=== PATIENT | female | born 1995 | race Caucasian/White ===

== ENCOUNTER 2023-11-05 05:39 | Day surgery (SDC) | payer OTHER ==
[2023-10-28 16:01] LABS: BASOPHILS # (AUTO) 0.1 X10'3 (0-0.2); BASOPHILS % (AUTO) 0.7 % (0-1); EOSINOPHILS # (AUTO) 0.3 X10'3 (0-0.9); EOSINOPHILS % (AUTO) 4.1 % (0-6); LYMPHOCYTES # (AUTO) 2.4 X10'3 (1.1-4.8); LYMPHOCYTES % (AUTO) 29.8 % (21-51); MEAN CORPUSCULAR HEMOGLOBIN 26.2 PG (27.0-31.0); MEAN CORPUSCULAR HGB CONC 32.8 g/dL (33.0-36.5); MEAN CORPUSCULAR VOLUME 79.9 FL (78-98); MEAN PLATELET VOLUME 6.9 FL (7.4-10.4); MONOCYTES # (AUTO) 0.5 X10'3 (0-0.9); NEUTROPHILS # (AUTO) 4.8 X10'3 (1.8-7.7); NEUTROPHILS % (AUTO) 59.4 % (42-75); PRE OP HEMATOCRIT 40.3 % (35.0-45.0); PRE OP HEMOGLOBIN 13.2 g/dL (12.0-16.0); PRE OP PLATELET COUNT 393 X10'3 (140-440); PRE OP WHITE BLOOD COUNT 8.1 10'3 (4.8-10.8); RED BLOOD COUNT 5.05 X10'6 (4.20-5.60); RED CELL DISTRIBUTION WIDTH 14.3 % (11.5-14.5)
[2023-10-28 16:10] LABS: HCG SERUM QL NEGATIVE
[2023-10-28 16:16] LABS: BILIRUBIN,URINE NEGATIVE (Neg); CLARITY,URINE SLIGHTLY CLOUDY (Clear); COLOR,URINE YELLOW (Yellow); GLUCOSE, URINE NEGATIVE (Neg); KETONES,URINE NEGATIVE (Neg); LEUKOCYTE ESTERASE ,URINE NEGATIVE (Neg); NITRITES, URINE NEGATIVE (Neg); OCCULT BLOOD,URINE NEGATIVE (Neg); PROTEIN,URINE NEGATIVE (Neg); UROBILINOGEN,URINE 0.2 E.U/dL (0.2-1.0)
[2023-10-28 16:22] LABS: UA COLLECTION TYPE CLN CATCH MIDSTREAM
[2023-10-28 16:23] LABS: SQUAMOUS EPITHELIAL CELL,UR MANY /LPF (FEW)
[2023-10-28 16:24] LABS: BACTERIA,URINE FEW /HPF (Neg); RBC,URINE 0-2 /HPF (0-2); WBC,URINE 0-4 /HPF (0-4)
[2023-10-28 16:28] LABS: ALBUMIN 4.1 G/DL (3.4-5.0); ALKALINE PHOSPHATASE 103 IU/L (46-116); BLOOD UREA NITROGEN 10 MG/DL (7-18); BUN/CREATININE RATIO 13.3 (10.0-20.0); CALCIUM 9.7 MG/DL (8.5-10.1); CHLORIDE 102 MMOL/L (99-107); CREATININE 0.75 MG/DL (0.40-0.90); PRE OP ALT 28 U/L (30-65); PRE OP ANION GAP 10 (8-16); PRE OP AST 13 U/L (10-37); PRE OP BILIRUB, TOTAL 0.3 MG/DL (0.0-1.0); PRE OP GLUCOSE 94 MG/DL (70-104); PRE OP POTASSIUM 3.8 MMOL/L (3.4-5.1); PRE OP SODIUM 139 MMOL/L (135-145); TOTAL CARBON DIOXIDE 27.3 MMOL/L (24-32); TOTAL PROTEIN 8.2 G/DL (6.4-8.2); eGFR > 90 ML/MIN
[~2023-11-05] VITALS: Ht 172.7 cm; Wt 109.9 kg
[2023-11-05] VITALS (7 sets, daily range): BP systolic 121–127; BP diastolic 77–86; PULSE 72–102; RESP 15–18; TEMP 97.8; O2SAT 98–100
[~2023-11-05 05:39] MED LIST: ASHWAGANDA; IBUP-2417 PO; VITAMIN B; VITAMIN D3
[2023-11-05] MEDS: ringers solution, lacted 1,000 ML IV SCH ×2 (06:07→09:55)
[2023-11-05] MEDS: famotidine 20mg tablet PO ONE (06:07)
[2023-11-05] MEDS: cefazolin 2gm/D5W 100mL 100 ML IV ONE (06:07)
[2023-11-05] MEDS ORDERED: bacitracin 15gm ointment TP ONE (07:01)
[2023-11-05] MEDS ORDERED: BUPIVAcaine/PF 2.5mg/ml (0.25%) 10ml vial ONE (07:01)
[2023-11-05] MEDS ORDERED: sevoflurane 250ml liquid IH ONE (07:20)
[2023-11-05] MEDS ORDERED: ROPIVAcaine 0.5% (5mg/ml) 30ml vial ONE ×2 (07:21→07:22)
[2023-11-05] MEDS ORDERED: propofol inj 20 ML IV ONE (07:22)
[2023-11-05] MEDS ORDERED: ondansetron/PF 4mg/2ml inj ONE (07:22)
[2023-11-05] MEDS ORDERED: midazolam 1 mg/ML 2ml injection ONE (07:22)
[2023-11-05] MEDS ORDERED: dexamethasone sod phosphate 4mg/ml inj. ONE (07:22)
[2023-11-05] MEDS ORDERED: LIDOcaine 2% (20mg/ml) 5ml vial ONE (07:22)
[2023-11-05] MEDS ORDERED: fentaNYL /PF 50mcg/ml 5ml ampule ONE (07:23)
[2023-11-05] MEDS ORDERED: acetaminophen 1,000mg/100ml IV 100 ML IV ONE (08:01)
[2023-11-05] MEDS ORDERED: morphine 2 MG/ML inj. syringe IV PRN (08:25)
[2023-11-05] MEDS ORDERED: hydrALAZINE 20mg/ml inj. IV PRN (08:25)
[2023-11-05] MEDS ORDERED: morphine 4 MG/ML inj SYRINge IV PRN (08:25)
[2023-11-05] MEDS ORDERED: fentaNYL/PF 50MCG/1 ML 2ML syringe IV PRN ×2 (08:25)
[2023-11-05] MEDS ORDERED: labetalol 20mg/4ml (5mg/ml) syringe IV PRN (08:25)
[2023-11-05] MEDS ORDERED: ROPIVAcaine 0.2% (10 MG/5 ML) BOLUS INJECTION POPLITEAL PRN (08:30)
[2023-11-05] MEDS: bacitracin 15gm ointment TP ONE (09:22)
[2023-11-05] MEDS: ondansetron/PF 4mg/2ml inj IV PRN (10:18)
[2023-11-05] MEDS: ROPIVAcaine 0.2%/PF PUMP/bolus 545 ML POPLITEAL SCH (10:27)
[2023-11-05] MEDS: proCHLORperazine 10 MG/2 ml inj IV PRN (10:57)
== END 2023-11-05 10:54 | disposition home or self-care (01) ==
LOC: PAS 05:39
PROVIDERS: ATTEND Podiatrist Foot & Ankle Surgery
DX: S86.311A Strain of muscle(s) and tendon(s) of peroneal muscle group at lower leg level, right leg, initial encounter (principal); S96.011A Strain of muscle and tendon of long flexor muscle of toe at ankle and foot level, right foot, initial encounter; M25.371 Other instability, right ankle; E66.9 Obesity, unspecified; G89.18 Other acute postprocedural pain; F41.9 Anxiety disorder, unspecified; Z79.1 Long term (current) use of non-steroidal anti-inflammatories (NSAID); Z79.899 Other long term (current) drug therapy; Z98.891 History of uterine scar from previous surgery; Z98.890 Other specified postprocedural states; Z68.36 Body mass index [BMI] 36.0-36.9, adult; X58.XXXA Exposure to other specified factors, initial encounter; Y93.89 Activity, other specified; Y92.89 Other specified places as the place of occurrence of the external cause; Y99.8 Other external cause status
CPT/HCPCS: 28200; 29898; 36415; 64445; 64447; 80053; 81001; 82948; 84703; 85025; A6222; C1713; J0131; J0690; J0780; J1100; J2250; J2405; J2704; J2795; J3010; J3490; J7120; Z7506; Z7508; Z7512; A4618; A6449; A7000